=== PATIENT | female | born 1985 | race Caucasian/White ===

== ENCOUNTER 2024-03-02 09:51 | Outpatient (CLI) | payer BC ==
[2024-03-02 11:43] LABS: Bilirubin Neg (Negative); Blood, Urine 10 (Negative); Clarity Clear (Clear); Glucose, Urine (Dipstick) Normal (Negative); Ketone, Urine Negative (Negative); Leukocyte Negative (Negative); Nitrite Negative (Negative); Protein, Urine (Dipstick) Negative (Neg-Trace); Urobilinogen Normal mg/dL (Less than 2)
[2024-03-02 11:52] LABS: Hematocrit 40.8 % (34.9-44.5); Hemoglobin 13.4 g/dL (12.0-15.5); Mean Corpuscular HGB CONC 32.8 g/dL (32.0-36.0); Mean Corpuscular Volume 91.5 fl (81.6-98.3); Mean Platelet Volume 10.7 fl (7.4-10.4); Platelet Count 249 10x3/uL (150-450); RBC Distribution Width 12.7 % (11.5-14.5); Red Blood Cell (RBC) Count 4.46 10x6/uL (3.90-5.03); White Blood Cell (WBC) Count 7.5 10x3/uL (3.5-10.5)
[2024-03-02 12:03] LABS: Bacteria/HPF 1+ HPF (None Seen); RBC/HPF 0-3 HPF (0-3); Squamous Epithelial 0-3 HPF (0-3); WBC/HPF 0-3 HPF (0-3)
[2024-03-02 12:22] LABS: BHCG - Serum Negative (NEGATIVE); Pregs Control Background? CLEAR/WHITE (CLR/WHITE); Pregs Control Bar Appear? YES (CONTROL BAR)
[2024-03-02 12:25] LABS: PTT 24.6 sec (22.0-33.0); Prothrombin Time 10.6 sec (9.5-12.1)
[2024-03-02 12:43] LABS: Anion Gap 12 mmol/L (10-20); BUN (Urea Nitrogen) 12 mg/dL (7.0-18.7); Calc. Creatinine Clearance 0 mL/min (70-130); Calcium 9.7 mg/dL (7.8-10.44); Carbon Dioxide 26 mmol/L (22-29); Chloride 107 mmol/L (98-107); Estimated GFR 105; Glucose 72 mg/dL (70-105); Potassium 4.1 mmol/L (3.5-5.1); Sodium 141 mmol/L (136-145)
== END 2024-03-02 09:52 | disposition home or self-care (01) ==
LOC: LABBT 09:51
PROVIDERS: ATTEND Urology
DX: Z01.818 Encounter for other preprocedural examination (principal); N20.0 Calculus of kidney
CPT/HCPCS: 80048; 81001; 84703; 85027; 85610; 85730; 87086; 93005; 93010

== ENCOUNTER 2024-03-16 06:42 | Day surgery (SDC) | payer BC ==
[2024-03-02 10:39] VITALS: BMI 21.1
[2024-03-16] MEDS ORDERED: LevoFLOXacin D5W 500 mg (100 mL) BAG ONE (07:50)
[2024-03-16] MEDS ORDERED: Midazolam HCl 2 mg/2 ml Vial ONE (09:56)
[2024-03-16] MEDS ORDERED: PROPOFOL 20 ML ONE (09:56)
[2024-03-16] MEDS ORDERED: fentaNYL PF 100 MCG/2 ML SYRINGE ONE (09:56)
[2024-03-16] MEDS ORDERED: Lidocaine 1% PF 5 ML VIAL ONE (10:20)
[2024-03-16] MEDS ORDERED: Promethazine HCl 25 MG/ML VIAL IM PRN (10:43)
[2024-03-16] MEDS ORDERED: Ondansetron HCl/PF 4 MG/2 ML Vial IVP PRN (10:43)
[2024-03-16] MEDS ORDERED: Ondansetron PF 4 MG/2 ML Vial ONE (10:49)
[2024-03-16] MEDS ORDERED: Dexamethasone 4 mg/ml Vial ONE (10:49)
[2024-03-16] MEDS ORDERED: Ketorolac Tromethamine 30 MG (1 mL) VIAL ONE (10:58)
[2024-03-16] MEDS ORDERED: Oxybutynin 5 MG TAB ONE (11:15)
[2024-03-16] MEDS ORDERED: Phenazopyridine HCl 100 MG TAB ONE (11:15)
[2024-03-23 20:37] LABS: CA Oxalate Monohydrate 90 % (.); Color Brown (.); Stone Weight 78 mg (.)
== END 2024-03-16 13:26 | disposition home or self-care (01) ==
LOC: SDC 06:42
PROVIDERS: ATTEND Urology
PROC: 0TC08ZZ Extirpation of Matter from Right Kidney, Via Natural or Artificial Opening Endoscopic (ICD-10-PCS; principal; 2024-03-16)
PROC: 0T768DZ Dilation of Right Ureter with Intraluminal Device, Via Natural or Artificial Opening Endoscopic (ICD-10-PCS; principal; 2024-03-16)
DX: N20.0 Calculus of kidney (principal); R31.0 Gross hematuria; Z87.442 Personal history of urinary calculi; Z91.040 Latex allergy status
CPT/HCPCS: 82365; 88300; C1713; C1747; C1769; C2617; J1100; J1885; J1956; J2250; J2405; J2704